=== PATIENT | female | born 2000 | race Two or more races ===

== ENCOUNTER 2019-11-01 13:57 | Inpatient (IN) ==
[2019-11-01 14:57] LABS: Apearance,Urine CLOUDY (Clear); Bilirubin,Urine Negative (Negative); Blood, Urine Moderate mg/dL (Negative); Glucose,Urine (UA) Negative (Negative); Ketones,Urine Negative (Negative); Mucus,Urine Few /LPF (Occasional); Nitrite,Urine Negative (Negative); Protein,Urine 30 MG/DL; RBC,Urine 58 /HPF (0-4); Squamous Epithelial Cell,Urine Few /HPF (0-10); Urine Color Yellow (Yellow); Urine Specific Gravity 1.015 (1.001-1.035); Urine Urobilinogen < 2.0 EU/DL (0.2-1.0); WBC,Urine 813 /HPF (0-6)
[2019-11-01] MEDS ORDERED: MEPERIDINE 50 MG/1 ML VIAL IV ONE (16:02)
[2019-11-01] MEDS ORDERED: LACTATED RINGERS 1,000 ML IV ONE ×2 (16:02→21:47)
[2019-11-01] MEDS ORDERED: ONDANSETRON 4 MG/2 ML VIAL IV ONE (16:02)
[2019-11-01 16:46] LABS: Basophils # 0.1 10*3/uL (0.0-0.2); Basophils % 0.3 % (0.0-0.8); Eosinophils % 0.1 % (0.00-10.9); Hematocrit 37.6 VOL% (35.7-47.0); Hemoglobin 12.5 GM/DL (12.0-16.0); Immature Granulocytes % 0.6 %; Immature Granulocytes Absolute 0.11 #; Lymphocytes # 1.2 10*3/uL (1.4-4.0); Lymphocytes % 6.4 % (21.3-54.2); Mean Corpuscular HGB Conc 33.2 GM/DL (32-36); Mean Corpuscular Volume 93.5 FL (87-102); Mean Platelet Volume 11.4 FL (9.6-12.0); Monocytes % 4.6 % (1.7-12.7); Platelet Count 218 T/CUMM (130-400); Red Blood Count 4.02 MC/CUMM (3.8-5.5); Red Cell Distribution Width 12.8 % (9.3-17.3); White Blood Count 19.2 T/CUMM (4-12)
[2019-11-01] MEDS ORDERED: AMPICILLIN INJ 2,000 MG in SODIUM CHLORIDE 0.9% 100 ML IV ONE (16:52)
[2019-11-01] MEDS: LACTATED RINGERS 1,000 ML IV SCH ×2 (17:00→20:25)
[2019-11-01 17:15] LABS: Alanine Aminotransferase 33 U/L (13-56); Albumin 3.2 G/DL (3.4-5.0); Alkaline Phosphatase 74 U/L (45-117); Aspartate Amino Transferase 25 U/L (0-37); Bilirubin,Total < 0.39 MG/DL (0.2-1.0); Blood Urea Nitrogen 9 MG/DL (7-18); Calcium 8.9 MG/DL (8.5-10.1); Estimated Glom Filtration Rate 125 ML/MIN; Glucose 82 MG/DL (74-106); Total Protein 7.3 G/DL (6.4-8.3)
[2019-11-01] MEDS ORDERED: MEPERIDINE 50 MG/1 ML VIAL IV PRN (18:02)
[2019-11-01] MEDS ORDERED: PROMETHAZINE 25 MG/1 ML VIAL IM PRN (18:02)
[2019-11-01] MEDS ORDERED: FAMOTIDINE 20 MG/2 ML VIAL IV ONE (20:03)
[2019-11-01] MEDS ORDERED: CITRIC ACID/SODIUM CITRATE 30 ML UDCUP PO ONE (20:03)
[2019-11-01] MEDS ORDERED: CITRIC ACID/SODIUM CITRATE 30 ML UDCUP ONE (20:12)
[2019-11-01] MEDS ORDERED: ePHEDrine 50 MG/ML AMP ONE (20:31)
[2019-11-01] MEDS ORDERED: BUPIVACAINE MPF 0.25% 30 ML VIAL ONE (20:50)
[2019-11-01] MEDS ORDERED: LIDOCAINE 1%/EPI INJ 20 ML VIAL ONE (20:50)
[2019-11-01] MEDS ORDERED: ONDANSETRON 4 MG/2 ML VIAL ONE (21:46)
[2019-11-01] MEDS ORDERED: fentaNYL 100 MCG/2 ML VIAL ONE (21:46)
[2019-11-01] MEDS ORDERED: SEVOFLURANE 1 UNIT/15 MINUTE INH ONE (21:46)
[2019-11-01] MEDS ORDERED: KETOROLAC 30 MG/1 ML VIAL ONE (21:46)
[2019-11-01] MEDS ORDERED: LIDOCAINE 2% 5 ML VIAL ONE (21:46)
[2019-11-01] MEDS ORDERED: propofoL 200 MG/20 ML VIAL IV ONE (21:46)
[2019-11-01] MEDS ORDERED: ACETAMINOPHEN 1,000 MG/100 ML VIAL IV ONE (21:47)
[2019-11-01] MEDS ORDERED: ROCURONIUM 100 MG/10 ML VIAL IV ONE (21:47)
[2019-11-01] MEDS ORDERED: SUCCINYLCHOLINE 200 MG/10 ML VIAL ONE (21:47)
[2019-11-02] MEDS ORDERED: ACETAMINOPHEN 325 MG TABLET PO PRN (03:42)
[2019-11-02] MEDS ORDERED: ONDANSETRON 4 MG/2 ML VIAL IV PRN (07:51)
[2019-11-02] MEDS ORDERED: ONDANSETRON 4 MG/2 ML VIAL ONE (07:54)
[2019-11-02 08:26] VITALS: BP 124/74
[2019-11-02] MEDS ORDERED: INFLUENZA VIRUS VACCINE 0.5 ML SYRINGE IM ONE (14:20)
== END 2019-11-02 15:10 | disposition home or self-care (01) | DRG 818 ==
LOC: N.LDOUT 13:57 → N.LD 14:01 → N.OB 22:08
PROVIDERS: ADMIT Surgery; ATTEND Surgery

== ENCOUNTER 2020-03-12 22:46 | Inpatient (IN) ==
[2020-03-13 00:27] LABS: Apearance,Urine CLEAR (Clear); Bilirubin,Urine Negative (Negative); Blood, Urine Large mg/dL (Negative); Glucose,Urine (UA) Negative (Negative); Ketones,Urine Negative (Negative); Nitrite,Urine Negative (Negative); Protein,Urine Negative; RBC,Urine 18 /HPF (0-4); Squamous Epithelial Cell,Urine Occasional /HPF (0-10); Urine Color Straw (Yellow); Urine Specific Gravity 1.002 (1.001-1.035); Urine Urobilinogen < 2.0 EU/DL (0.2-1.0); WBC,Urine 10 /HPF (0-6)
[2020-03-13] MEDS ORDERED: LACTATED RINGERS 1,000 ML IV ONE ×2 (00:35→07:12)
[2020-03-13] MEDS: LACTATED RINGERS 1,000 ML IV SCH ×3 (01:30→12:52)
[2020-03-13] MEDS ORDERED: ONDANSETRON 4 MG/2 ML VIAL IV ONE (02:12)
[2020-03-13] MEDS ORDERED: MEPERIDINE 50 MG/1 ML VIAL IV ONE (02:12)
[2020-03-13] MEDS ORDERED: ONDANSETRON 4 MG/2 ML VIAL IV PRN ×2 (05:42→15:40)
[2020-03-13] MEDS ORDERED: OXYTOCIN/LR 20 UNIT/1,000 ML BAG IV SCH ×2 (06:00)
[2020-03-13] MEDS ORDERED: LACTATED RINGERS 1,000 ML IV SCH ×2 (06:00→16:00)
[2020-03-13 06:08] LABS: Basophils % 0.2 % (0.0-0.8); Eosinophils % 0.4 % (0.00-10.9); Hematocrit 39.5 VOL% (35.7-47.0); Hemoglobin 12.7 GM/DL (12.0-16.0); Immature Granulocytes % 0.3 %; Immature Granulocytes Absolute 0.03 #; Lymphocytes # 3.2 10*3/uL (1.4-4.0); Lymphocytes % 28.1 % (21.3-54.2); Mean Corpuscular HGB Conc 32.2 GM/DL (32-36); Mean Corpuscular Volume 94.3 FL (87-102); Mean Platelet Volume 11.2 FL (9.6-12.0); Monocytes % 5.2 % (1.7-12.7); Neutrophils % 65.8 % (38.7-73.9); Platelet Count 240 T/CUMM (130-400); Red Blood Count 4.19 MC/CUMM (3.8-5.5); White Blood Count 11.4 T/CUMM (4-12)
[2020-03-13 06:27] LABS: Alanine Aminotransferase 82 U/L (13-56); Albumin 2.4 G/DL (3.4-5.0); Alkaline Phosphatase 157 U/L (45-117); Aspartate Amino Transferase 59 U/L (0-37); Bilirubin,Total < 0.39 MG/DL (0.2-1.0); Blood Urea Nitrogen 8 MG/DL (7-18); Calcium 8.9 MG/DL (8.5-10.1); Estimated Glom Filtration Rate 151 ML/MIN; Glucose 84 MG/DL (74-106); Osmolality,Calculated 269.8 MOS/KG (273-304); Total Protein 6.7 G/DL (6.4-8.3)
[2020-03-13] MEDS ORDERED: FAMOTIDINE 20 MG/2 ML VIAL IV ONE (07:12)
[2020-03-13] MEDS ORDERED: CITRIC ACID/SODIUM CITRATE 30 ML UDCUP PO ONE (07:12)
[2020-03-13] MEDS ORDERED: diphenhydrAMINE 50 MG/1 ML VIAL IV PRN ×2 (07:14)
[2020-03-13] MEDS ORDERED: NALOXONE 0.4 MG/ML VIAL IV PRN (07:14)
[2020-03-13] MEDS ORDERED: hydrOXYzine HCL 25 MG/1 ML VIAL IM PRN (07:14)
[2020-03-13] MEDS ORDERED: PROMETHAZINE 25 MG/1 ML VIAL IM ONE (07:14)
[2020-03-13] MEDS ORDERED: fentaNYL 2 MCG/ROPIV 0.2% EPID 100 ML EPIDURAL SCH (07:30)
[2020-03-13] MEDS: ePHEDrine 50 MG/ML AMP IV PRN ×2 (09:08→09:35)
[2020-03-13 09:31] LABS: Apearance,Urine CLEAR (Clear); Bilirubin,Urine Negative (Negative); Blood, Urine Large mg/dL (Negative); Glucose,Urine (UA) Negative (Negative); Ketones,Urine Negative (Negative); Mucus,Urine Occasional /LPF (Occasional); Nitrite,Urine Negative (Negative); Protein,Urine Negative; RBC,Urine 539 /HPF (0-4); Squamous Epithelial Cell,Urine Occasional /HPF (0-10); Urine Color Yellow (Yellow); Urine Specific Gravity 1.009 (1.001-1.035); Urine Urobilinogen < 2.0 EU/DL (0.2-1.0); WBC,Urine 33 /HPF (0-6)
[2020-03-13] MEDS ORDERED: TERBUTALINE 1 MG/1 ML VIAL ONE (14:13)
[2020-03-13] MEDS ORDERED: TERBUTALINE 1 MG/1 ML VIAL SUBCUT ONE (14:13)
[2020-03-13] MEDS ORDERED: OXYTOCIN 10 UNIT/ML VIAL ONE (14:16)
[2020-03-13] MEDS ORDERED: TRANEXAMIC ACID 1,000 MG/10 ML VIAL ONE (14:17)
[2020-03-13] MEDS ORDERED: METHYLERGONOVINE 0.2 MG/1 ML AMP ONE (14:17)
[2020-03-13] MEDS ORDERED: CARBOPROST TROMETHAMINE 250 MCG/ML AMP IM ONE (14:17)
[2020-03-13] MEDS ORDERED: miSOPROStoL 200 MCG TABLET ONE (14:17)
[2020-03-13 15:24] LABS: Cord Arterial Blood HCO3 13.6 MMOL/L
[2020-03-13 15:26] LABS: Cord Venous Blood HCO3 14.5 MMOL/L; Cord Venous Blood PCO2 57.7 MMHG; Cord Venous Blood PO2 21.6
[2020-03-13] MEDS ORDERED: RHO(D) IMMUNE GLOBULIN 300 MCG SYRINGE IM ONE (15:40)
[2020-03-13] MEDS ORDERED: ACETAMINOPHEN 325 MG TABLET PO PRN (15:40)
[2020-03-13] MEDS ORDERED: SIMETHICONE CHEW 80 MG TABLET PO PRN (15:40)
[2020-03-13] MEDS ORDERED: OXYTOCIN/LR 20 UNIT/1,000 ML BAG IV ONE (15:40)
[2020-03-13] MEDS ORDERED: LIDOCAINE MPF 2% /EPI 20 ML VIAL ONE (15:42)
[2020-03-13] MEDS ORDERED: PHENYLEPHRINE 1 MG/10 ML SYRINGE IV ONE (15:43)
[2020-03-13] MEDS ORDERED: MORPHINE 10 MG/10 ML VIAL ONE (15:43)
[2020-03-13] MEDS ORDERED: SODIUM BICARBONATE 10 MEQ/10 ML SYRINGE IV ONE (15:52)
[2020-03-13] MEDS ORDERED: ceFAZolin 1,000 MG in SYRINGE 1 EACH IV SCH (16:00)
[2020-03-13 23:31] LABS: Basophils % 0.2 % (0.0-0.8); Eosinophils % 0.2 % (0.00-10.9); Hematocrit 34.5 VOL% (35.7-47.0); Hemoglobin 11.1 GM/DL (12.0-16.0); Immature Granulocytes % 0.4 %; Immature Granulocytes Absolute 0.05 #; Lymphocytes # 1.9 10*3/uL (1.4-4.0); Lymphocytes % 14.8 % (21.3-54.2); Mean Corpuscular HGB Conc 32.2 GM/DL (32-36); Mean Corpuscular Volume 93.5 FL (87-102); Mean Platelet Volume 11.3 FL (9.6-12.0); Monocytes % 5.8 % (1.7-12.7); Neutrophils % 78.6 % (38.7-73.9); Platelet Count 192 T/CUMM (130-400); Red Blood Count 3.69 MC/CUMM (3.8-5.5)
[2020-03-13] MEDS: ceFAZolin 1,000 MG in SYRINGE 1 EACH IV SCH (23:35)
[2020-03-14] MEDS: DOCUSATE SODIUM 100 MG CAPSULE PO SCH ×3 (00:05→21:11)
[2020-03-14] MEDS: IBUPROFEN 800 MG TABLET PO PRN ×2 (05:08→19:44)
[2020-03-14 05:44] LABS: Basophils % 0.3 % (0.0-0.8); Eosinophils % 0.4 % (0.00-10.9); Hematocrit 34.1 VOL% (35.7-47.0); Immature Granulocytes % 0.3 %; Immature Granulocytes Absolute 0.03 #; Lymphocytes % 17.7 % (21.3-54.2); Mean Corpuscular HGB Conc 32.3 GM/DL (32-36); Mean Corpuscular Volume 94.5 FL (87-102); Mean Platelet Volume 11.5 FL (9.6-12.0); Monocytes % 6.7 % (1.7-12.7); Neutrophils % 74.6 % (38.7-73.9); Platelet Count 179 T/CUMM (130-400); Red Blood Count 3.61 MC/CUMM (3.8-5.5); Red Cell Distribution Width 12.1 % (9.3-17.3); White Blood Count 11.2 T/CUMM (4-12)
[2020-03-14] MEDS: ceFAZolin 1,000 MG in SYRINGE 1 EACH IV SCH (06:45)
[2020-03-14] MEDS: MULTIVITAMIN (PRENATAL) TABLET PO SCH (08:55)
[2020-03-14] MEDS: MAGNESIUM HYDROXIDE SUSP 30 ML UDCUP PO PRN ×2 (08:55→21:11)
[2020-03-14] MEDS: METOCLOPRAMIDE 10 MG TABLET PO SCH (17:05)
[2020-03-15] MEDS: IBUPROFEN 800 MG TABLET PO PRN (04:25)
[2020-03-15] MEDS: METOCLOPRAMIDE 10 MG TABLET PO SCH ×2 (06:00→08:22)
[2020-03-15] MEDS: DOCUSATE SODIUM 100 MG CAPSULE PO SCH (09:14)
[2020-03-15] MEDS: MULTIVITAMIN (PRENATAL) TABLET PO SCH (09:14)
[2020-03-15 09:41] VITALS: BP 111/60
[2020-03-15] MEDS ORDERED: DIPH/TET/ACEL PERT BOOSTER VACCINE 0.5 ML VIAL IM ONE (09:41)
[2020-03-16 12:59] LABS: SARS-CoV-2 Total Ab Interp Reactive
== END 2020-03-15 18:45 | disposition home or self-care (01) | DRG 788 ==
LOC: N.LDOUT 22:46 → N.LD 22:48 → N.OB 03-13 17:50
PROVIDERS: ADMIT Obstetrics & Gynecology; ATTEND Obstetrics & Gynecology
PROC: LDCSECT (ICD-10-PCS; 2020-03-13 16:40)